=== PATIENT | female | born 1985 | race Caucasian/White ===

== ENCOUNTER → 2018-04-27 15:20 | Outpatient (CLI) | payer OTHER, SELFPAY ==
--- NOTE | 2018-04-27 15:24 | DI.RAD.S_ITS ---
PROCEDURE: XR KNEE RT 3V INDICATIONS: rt knee TECHNIQUE: 3 views of the knee were acquired. COMPARISON: None. FINDINGS: Bones: No fractures or dislocations. The mildly compartment joint space loss. No suspicious bony lesions. Soft tissues: No joint effusion. No suspicious soft tissue calcifications. IMPRESSION: Mild medial compartment joint space loss. Otherwise normal right knee. Dictated by: Emma Kam M.D. on 04/27/2018 at 17:13 Approved by: Emma Kam M.D. on 04/27/2018 at 17:14
== END ==
PROVIDERS: PCP Family Medicine; Visit Provider Family Medicine
DX: M25.561 Pain in right knee (principal)
CPT/HCPCS: 73562

== ENCOUNTER → 2018-05-06 12:27 | Outpatient (CLI) | payer OTHER, SELFPAY | PROVIDERS: PCP Family Medicine; Visit Provider Registered Nurse | DX: R50.9 Fever, unspecified (principal) | CPT/HCPCS: 87400 ==

== ENCOUNTER 2020-07-01 09:12 | Emergency (ER) | payer OTHER, SELFPAY ==
[2020-07-01 09:31] VITALS: BP 117/78; PULSE 74; RESP 18; TEMP 36.2; O2SAT 97; BMI 29.4
--- NOTE | 2020-07-01 09:36 | DI.RAD.S_ITS ---
PROCEDURE: XR ANKLE LT MIN 3V INDICATIONS: fall TECHNIQUE: 3 views of the ankle were acquired. COMPARISON: None. FINDINGS: Bones: No fractures or dislocations. Ankle mortise is normally aligned. No suspicious bony lesions. Soft tissues: No tibiotalar joint effusion. Achilles tendon appears normal. IMPRESSION: No acute ankle fracture or dislocation. Intact ankle mortise. Dictated by: Ezequiel Alvarez M.D. on 07/01/2020 at 10:16 Approved by: Ezequiel Alvarez M.D. on 07/01/2020 at 10:18
--- NOTE | 2020-07-01 09:36 | DI.RAD.S_ITS ---
PROCEDURE: XR TIBIA FIBULA LT 2V INDICATIONS: fall TECHNIQUE: 2 views of the tibia and fibula were acquired. COMPARISON: None. FINDINGS: Bones: No fractures or dislocations. No suspicious bony lesions. Soft tissues: No suspicious soft tissue calcifications or masses. IMPRESSION: No acute fracture or dislocation is seen in visualized portion of left lower leg. Dictated by: Ezequiel Alvarez M.D. on 07/01/2020 at 10:18 Approved by: Ezequiel Alvarez M.D. on 07/01/2020 at 10:36
--- NOTE | 2020-07-01 09:59 | ED_ITS ---
HPI - Extremity Injury (Lower) General Chief Complaint: Extremity Injury, Lower Stated Complaint: left lower leg pain, fell today Time Seen by Provider: 07/01/20 09:46 Source: patient Mode of arrival: Ambulatory Limitations: no limitations History of Present Illness HPI Narrative: Patient is a 34-year-old female here for evaluation of left leg pain. She states that earlier this morning she was caring some branches and tripped and landed with her left leg up underneath her. She has pain along the outside of the leg. No hip tenderness. No foot tenderness. Has not tried anything for the symptoms prior to arrival. She was ambulatory. Related Data Allergies Allergy/AdvReac Type Severity Reaction Status Date / Time atropine [From ] AdvReac Mild FACE Verified 07/01/20 09:36 FLUSHING hyoscyamine [From ] AdvReac Mild FACE Verified 07/01/20 09:36 FLUSHING phenobarbital [From ] AdvReac Mild FACE Verified 07/01/20 09:36 FLUSHING scopolamine [From ] AdvReac Mild FACE Verified 07/01/20 09:36 FLUSHING Review of Systems Constitutional Constitutional: Denies fever(s) ENT Ears, Nose, Mouth, and Throat: Denies vertigo and Denies dizziness Cardiovascular Cardiovascular: Denies chest pain and Denies dyspnea Respiratory Respiratory: Denies dyspnea Gastrointestinal Gastrointestinal: Denies abdominal pain, Denies nausea and Denies vomiting Musculoskeletal Comments: Left leg pain Integumentary/Breasts Skin/Breast: Denies lesions and Denies rash Neurologic Neurologic: Denies confusion, Denies vertigo and Denies dizziness Psychiatric Psychiatric: Denies confusion Hematologic/Lymphatic On Anticoagulants: No Allergic/Immunologic Allergic/Immunologic: Denies urticaria Patient History Medical History Anxiety Asthma Chronic headaches (1996) Family history of endometriosis Rheumatoid arthritis (1984) Surgical History Anesthesia History of umbilical hernia repair (~1988) Family History Grandfather Cancer Pancreatic cancer Brother No problems noted. Father No problems noted. Grandfather No problems noted. Grandmother No problems noted. Mother No problems noted. Grandmother No problems noted. Social History marital status: Smoking Status: Never smoker alcohol intake: current (ON OCCASION ) substance use type: does not use Smoking Status: Never smoker alcohol intake frequency: 0-2 drinks per day Substance Use Type: does not use Exam Initial Vital Signs Initial Vital Signs: Vital Signs Temperature 97.1 F L 07/01/20 09:31 Pulse Rate 74 07/01/20 09:31 Respiratory Rate 18 07/01/20 09:31 Blood Pressure 117/78 07/01/20 09:31 Pulse Oximetry 97 07/01/20 09:31 Const General: cooperative, comfortable and well developed Limitations: mental status not altered HENMT Head: normal to inspection and normocephalic Resp Effort & Inspection: normal respiratory effort Cardio Pulses: dorsalis pedis present on the left Skin Lesions: no lesions Rashes: no rashes Neuro General: patient alert, patient awake and patient oriented x3 Gait: normal gait Sensory Exam: no sensory deficits noted Extrem General: normal to inspection and capillary refill normal Other: Tenderness along the entire fibula. Also tenderness along the anterior aspect of the lateral malleolus. The medial malleolus and Achilles and foot are unremarkable. No calf tenderness. Psych Appearance: grossly normal and well kempt Course Orders Ordered: ED Orders 07/01/20 09:36 XR ankle LT min 3V Stat XR tibia fibula LT 2V Stat Vital Signs Vital signs: Vital Signs - 8 hr 07/01/20 09:31 07/01/20 10:17 Temperature 97.1 F L Pulse Rate 74 Pulse Rate [Left Dorsalis Pedis] 70 Respiratory Rate 18 Blood Pressure 117/78 Pulse Oximetry 97 MDM - Extremity Injury (Lower) Imaging Data Extremity x-ray #1: Radiologist's Impression: [address] [id number] ReportSigned Patient: Greta Mathis LMR#: [id number]: 1985Acct:[id number]/Sex: 34 / FDate of Service: 07/01/20Loc: EDAccession Number: [id number] Procedure: XR ankle LT min 3V Ordering Provider: Pj Medina D.O. PROCEDURE: XR ANKLE LT MIN 3V INDICATIONS: fall TECHNIQUE: 3 views of the ankle were acquired. COMPARISON: None. FINDINGS: Bones: No fractures or dislocations. Ankle mortise is normally aligned. No suspicious bony lesions. Soft tissues: No tibiotalar joint effusion. Achilles tendon appears normal. IMPRESSION: No acute ankle fracture or dislocation. Intact ankle mortise. Dictated by: Ezequiel Alvarez M.D. on 07/01/2020 at 10:16 Approved by: Ezequiel Alvarez M.D. on 07/01/2020 at 10:18 Extremity x-ray #2: Radiologist's Impression: [address] [id number] ReportSigned Patient: Greta Mathis LMR#: [id number]: 1985Acct:[id number]/Sex: 34 / FDate of Service: 07/01/20Loc: EDAccession Number: [id number] Procedure: XR tibia fibula LT 2V Ordering Provider: Pj Medina D.O. PROCEDURE: XR TIBIA FIBULA LT 2V INDICATIONS: fall TECHNIQUE: 2 views of the tibia and fibula were acquired. COMPARISON: None. FINDINGS: Bones: No fractures or dislocations. No suspicious bony lesions. Soft tissues: No suspicious soft tissue calcifications or masses. IMPRESSION: No acute fracture or dislocation is seen in visualized portion of left lower leg. Dictated by: Ezequiel Alvarez M.D. on 07/01/2020 at 10:18 Approved by: Ezequiel Alvarez M.D. on 07/01/2020 at 10:3 MDM Narrative Medical decision making narrative: Patient is neurovascularly intact. No fractures on the x-rays. I did discuss this with the patient. We did discuss keeping it elevated and iced. Discussed return precautions and follow-up instructions. She expressed understanding and agreement. Discharge Plan Departure Patient Disposition: Home Clinical Impression: Leg pain, left Instructions: DI for Leg Pain Activity Restrictions/Additional Instructions: Recommend that you keep your leg elevated and iced as much as possible. There were no fractures on the x-ray so you can walk as tolerated. Contact your primary provider for follow-up. Referrals: Aba Mendoza MD [Primary Care Provider] -
[2020-07-01 10:17] VITALS: PULSE 70
== END 2020-07-01 10:59 | disposition home or self-care (01) ==
PROVIDERS: Emergency Provider Emergency Medicine; PCP Family Medicine
DX: M79.605 Pain in left leg (principal)
CPT/HCPCS: 73590; 73610; 99283

== ENCOUNTER → 2021-08-13 14:47 | Outpatient (CLI) | payer OTHER, SELFPAY ==
[2021-08-13 16:34] LABS: Add Manual Diff / Slide Review NO; Basophils Absolute Auto 0 /uL (0-100); Basophils Percent Auto 0.3 % (0-2); Eosinophils Absolute Auto 300 /uL (0-450); Eosinophils Percent Auto 3.2 % (2-4); Hematocrit 36.2 % (36-46); Lymphocytes Absolute Auto 2100 /uL (1100-4500); Lymphocytes Percent Auto 24.6 % (25-40); Mean Corpuscular HGB Conc 33.2 % (30-36); Mean Corpuscular Hemoglobin 25.5 PG (26-34); Mean Corpuscular Volume 76.8 fL (80-100); Monocytes Absolute Auto 500 /uL (0-900); Monocytes Percent Auto 5.9 % (3-14); Neutrophils Absolute Auto 5600 /uL (1500-7000); Platelet Count 275 X10^3/uL (150-400); Red Blood Cell Count 4.71 X10^6/uL (4.0-5.2); Red Cell Distribution Width 16.3 % (11.6-14.8); White Blood Cell Count 8.6 X10^3/uL (4.5-11.0)
[2021-08-13 17:49] LABS: Alanine Aminotransferase 17 IU/L (<35); Albumin 4.3 g/dL (3.5-5.0); Albumin Globulin Ratio 1.4 (1.0-2.8); Alkaline Phosphatase 59 U/L (38-126); Aspartate Aminotransferase 24 IU/L (14-36); BUN Creatinine Ratio 16.9 (6-22); Bilirubin Total 0.3 mg/dL (0.2-1.3); Blood Urea Nitrogen 13 mg/dL (7-17); Calcium 8.6 mg/dL (8.4-10.2); Carbon Dioxide 26 mmol/L (22-32); Chloride 106 mmol/L (98-107); Estimated Glomerular Filt Rate > 60 mL/min (>60); Glucose 91 mg/dL (70-100); HEMOLYSIS < 15 (0-50); Potassium 3.5 mmol/L (3.4-5.1); Sodium 142 mmol/L (137-145); Total Protein 7.3 g/dL (6.3-8.2)
[2021-08-13 18:18] LABS: TSH w/ Reflex to FT4 1.49 uIU/mL (0.47-4.68)
== END ==
PROVIDERS: PCP Family Medicine; Referring Provider Physician Assistant; Visit Provider Physician Assistant
DX: M62.838 Other muscle spasm (principal); R00.0 Tachycardia, unspecified
CPT/HCPCS: 36415; 80053; 84443; 85025

== ENCOUNTER → 2021-11-27 15:08 | Outpatient (CLI) | payer OTHER, SELFPAY ==
--- NOTE | 2021-12-19 15:20 | PM.CARDMON.1 ---
Quality Control Lab Tech Report Referral & Results Date Patient Seen: 11/27/21 Requesting provider: Brisa Garcia Indication: Tachycardia Duration of monitoring (days): 14 Diary information: There were 14 patient triggered events all of which were associated with sinus rhythm only with heart rate ranging from 66-98 beats per minute Data: Minimum heart rate identified was 40 beats per minute at 07:01 on 12/08/2021 Maximum sinus heart rate was 150 beats per minute at 15:34 on 11/30/2021 Maximum overall heart rate was 160 beats per minute at 01:21 on 11/28/2021 during a run of SVT Less than 1% of identified beats were ventricular or supraventricular ectopic in origin, which would classify them as rare. There was 1 run of SVT that was 4 beats in duration at a rate of 160 beats per minute There were no pauses of 3 seconds or longer or episodes of atrial fibrillation identified on this study Impression: 14 day documentation engineer demonstrating single very brief run of SVT as above. Patient reported symptoms not associated with any significant or notable dysrhythmia Overall patient did not appear to be excessively tachycardic Clinical correlation suggested
== END ==
PROVIDERS: PCP Family Medicine; Referring Provider Physician Assistant; Visit Provider Physician Assistant
DX: R00.0 Tachycardia, unspecified (principal)
CPT/HCPCS: 93246; 93248

== ENCOUNTER → 2022-10-27 17:19 | Outpatient (CLI) | payer OTHER, SELFPAY ==
--- NOTE | 2022-10-27 17:20 | DI.RAD.S_ITS ---
PROCEDURE: XR CHEST 2V INDICATIONS: Cough, shortness of breath TECHNIQUE: 2 views of the chest were acquired. COMPARISON: None. FINDINGS: Surgical changes and devices: None. Lungs and pleura: Lungs are clear. No pleural effusions or pneumothorax. Mediastinum: Mediastinal contours are normal. Heart size is normal. Bones and chest wall: No suspicious bony abnormalities. Soft tissues appear unremarkable. IMPRESSION: No source for cough and shortness of breath identified radiographically. Dictated by: Nahun Bronson [facility] Interpreted: Zeyad Velázquez MD on 10/27/2022 at 20:26 Approved by: Zeyad Velázquez M.D. on 10/28/2022 at 10:29
== END ==
PROVIDERS: Family Provider Family Medicine; PCP Family Medicine; Referring Provider Physician Assistant; Visit Provider Physician Assistant
DX: R05.9 Cough, unspecified (principal)
CPT/HCPCS: 71046

== ENCOUNTER → 2023-08-31 13:19 | Outpatient (CLI) | payer OTHER, SELFPAY ==
--- NOTE | 2023-08-31 13:20 | DI.RAD.S_ITS ---
PROCEDURE: XR CHEST 2V INDICATIONS: Cough TECHNIQUE: 2 views of the chest were acquired. COMPARISON: [facility], CR, XR CHEST 2V, 10/27/2022, 17:22. FINDINGS: Surgical changes and devices: None. Lungs and pleura: No silhouetting. Mild fullness in the right hilar region. No pleural effusions or pneumothorax. Mediastinum: Mediastinal contours are otherwise unchanged. Heart size is normal. Bones and chest wall: No suspicious bony abnormalities. Soft tissues appear unremarkable. IMPRESSION: Mild fullness in the right hilar region. This could be due to adenopathy or overlying airspace opacity. Recommend follow-up chest x-ray. CT chest with contrast could be considered for further evaluation. Dictated by: Saud Rea M.D. on 08/31/2023 at 17:15 Approved by: Saud Rea M.D. on 08/31/2023 at 17:18
== END ==
PROVIDERS: Family Provider Family Medicine; PCP Family Medicine; Referring Provider Nurse Practitioner Family; Visit Provider Nurse Practitioner Family
DX: R05.9 Cough, unspecified (principal)
CPT/HCPCS: 71046

== ENCOUNTER 2023-09-04 06:17 | Emergency (ER) | payer OTHER, SELFPAY ==
[2023-09-04 06:25] VITALS: BP 144/81; PULSE 91; RESP 18; TEMP 37.6; O2SAT 92; BMI 32.1
--- NOTE | 2023-09-04 06:39 | PC.NURSE ---
Slight redness noted on forehead and left cheek. Pt has been out in the sun some but is unsure of why a few time she had some a warming feeling in her left cheek.
--- NOTE | 2023-09-04 07:18 | ED_ITS ---
HPI - Allergic Reaction General Chief complaint: Allergic Reaction Stated complaint: left side of face and shoulder feel warm Time Seen by Provider: 09/04/23 06:50 Source: patient Mode of arrival: Ambulatory Limitations: no limitations History of Present Illness HPI narrative: This is a 37-year-old female with history of asthma, anxiety who presents with complaint of redness of her face. She states it feels a little bit warm. It started yesterday had progressed into today. She does note she was in the sun some yesterday but did not think excessively. She also notes that she was started on prednisone on Wednesday for asthma exacerbation. Patient was seen in the walk-in clinic. Patient has not had any fevers. She states redness isn't anywhere else it does not seem to be spreading, there has been no swelling or blistering. She states it has not particularly painful. No hives or rash elsewhere. No chest pain, no new shortness of breath. She states she has had decreasing use of her albuterol only used it once overnight. She was using it every 6 hours. Patient denies any nausea or vomiting no diarrhea constipation or urinary symptoms. No swelling of extremities. She has felt very anxious, she has had insomnia been feeling very stressed since taking the prednisone she started at 40 mg, she has only been taking 20 mg but states still feeling very anxious. She did reach out to walk-in clinic who told her that she could not stop it. She was also prescribed albuterol inhaler and benzonatate. She has not currently on any oral antibiotics. She has not used any new topical lotions or creams or makeup to her face that might be causing irritation. Patient does have several allergies listed with the affect being face flushing. No tobacco, occasional alcohol, no recreational drugs. Related Data Previous Rx's Medication Instructions Recorded albuterol sulfate 90 mcg/actuation 2 inh inhalation Q4-6H PRN 10/27/22 breath activated powder shortness of breath #1 ea inhaler,sensor inhalational spacing device #1 ea 10/27/22 (Flexichamber spacer) albuterol sulfate 90 mcg/actuation 2 puff inhalation Q6H PRN 08/31/23 aerosol inhaler shortness of breath or wheezing #6.7 grams benzonatate 200 mg capsule 200 mg PO BID PRN cough #28 caps 08/31/23 prednisone 20 mg tablet 40 mg (2 x 20 mg) PO DAILY #6 tabs 08/31/23 Allergies Allergy/AdvReac Type Severity Reaction Status Date / Time atropine [From ] AdvReac Mild FACE Verified 08/31/23 12:59 FLUSHING hyoscyamine [From ] AdvReac Mild FACE Verified 08/31/23 12:59 FLUSHING phenobarbital [From ] AdvReac Mild FACE Verified 08/31/23 12:59 FLUSHING scopolamine [From ] AdvReac Mild FACE Verified 08/31/23 12:59 FLUSHING Review of Systems Review of Systems ROS Unobtainable: All systems reviewed & are unremarkable except as noted in HPI and below Patient History Medical History Family history of endometriosis Anxiety Asthma Chronic headaches (1996) Rheumatoid arthritis (1984) Surgical History Anesthesia History of umbilical hernia repair (~1988) Family History Grandfather Cancer Pancreatic cancer Brother No problems noted. Father No problems noted. Grandfather No problems noted. Grandmother No problems noted. Mother No problems noted. Grandmother No problems noted. Social History marital status: Smoking Status: Never smoker alcohol intake: current (ON OCCASION ) substance use type: does not use Smoking Status: Never smoker alcohol intake frequency: 0-2 drinks per day Substance Use Type: does not use Exam Narrative Exam Narrative: GEN: well nourished, well appearing female, alert and oriented x 3, patient appears to be in mild distress. HEENT: Atraumatic, pupils are equal round reactive to light, extraocular movements are intact, nares are clear, TMs are clear with no fluid, there is no conjunctival pallor. Throat is clear without any exudates, erythema, tonsillar enlargement or uvular deviation, patient has mild generalized erythema of the face particularly with the forehead cheeks and nose, does have some small telangiectasias of the cheeks. There is no swelling, some very mild warmth. No other skin changes noted. HEART: Regular rate and rhythm without murmur, clicks, rubs. LUNGS:Lungs clear to auscultation, no wheezes, rales, crackles, chest moves sy mmetrically, no tachypnea or accessory muscle use ABD:bowel sounds normal, soft, non-tender, no guarding, rebound, rigidity, no masses noted, no hepatosplenomegaly MSCL: Non-tender, no muscle atrophy, muscles strength 5/5 upper and lower extremities, full range of motion, normal gait NEURO:CN 2-12 intact, sensation normal SKIN: No other rash, erythema or skin changes appreciated than the face except for very mild erythema of the upper chest/neck in sun-exposed areas. Initial Vital Signs Initial Vital Signs: Vital Signs Temperature 99.6 F 09/04/23 06:25 Pulse Rate 91 H 09/04/23 06:25 Respiratory Rate 18 09/04/23 06:25 Blood Pressure 144/81 H 09/04/23 06:25 Pulse Oximetry 92 09/04/23 06:25 Oxygen Delivery Method Room Air 09/04/23 06:25 Course Vital Signs Vital signs: Vital Signs - 8 hr 09/04/23 06:25 Temperature 99.6 F Pulse Rate 91 H Respiratory Rate 18 Blood Pressure 144/81 H Pulse Oximetry 92 Oxygen Delivery Method Room Air MDM - Allergic Reaction MDM Narrative Medical decision making narrative: 37-year-old female with erythema face, might possibly be a side effect of prednisone she does not appear to be having any form of allergic reaction, maybe secondary to sun exposure although patient states she did not have any excessive exposure yesterday. She does note she has having a lot of anxiety insomnia and does appear to be having side effects from the prednisone in his forearm. Her breathing has significantly improved since she started it she has been taking 20 mg the last several days initially has been started on 40. States she only used her inhaler once overnight. She was using it every 6 hours before. Discussed with patient can continue to decrease her prednisone to 10 mg today and if feeling significantly improved can stop. Discussed possible causes her erythema and return precautions. We did review her chest x-ray from the walk-in clinic, there was some fullness in the hilar region and recommended to have repeat imaging such as chest x-ray or CT chest with contrast if necessary. I did not share this with the patient. Discharge Plan Departure Patient Disposition: Home Clinical Impression: Erythema of face Activity Restrictions/Additional Instructions: I hope you continue to feel improved. You can take 10 mg of prednisone today, if you are continuing to feel improved and not requiring your inhaler regularly you can stop taking any additional prednisone. If you feel like you are needing it occasionally you can continue with 10 mg daily for the next 2 days. The imaging from the 2nd showed some mild fullness in your right hilar region, this can sometimes be due to positioning but it is recommended you have a follow up chest x-ray or additional imaging. Talk with your primary care physician to your follow-up visit and they can order this. Please return if you are having fevers, increasing redness, swelling any blistering of the skin, any rash involvement of the mucous membranes such as the inside of your mouth, new chest pain or shortness of breath, persistent vomiting, new swelling of extremities or other new or concerning changes. Prescriptions: No Action albuterol sulfate 90 mcg/actuation aero powdr breath act w/sensor 2 inh inhalation Q4-6H PRN (Reason: shortness of breath) Qty: 1 0RF Rx Instructions: Using spacer inhale 2 puffs every 4-6 hours as needed (DME) Flexichamber Spacer See Rx Instructions .Route Qty: 1 0RF Rx Instructions: As directed prednisone 20 mg tablet 40 mg PO DAILY Qty: 6 0RF albuterol sulfate 90 mcg/actuation HFA aerosol inhaler 2 puff inhalation Q6H PRN (Reason: shortness of breath or wheezing) Qty: 6.7 0RF benzonatate 200 mg capsule 200 mg PO BID PRN (Reason: cough) Qty: 28 0RF Referrals: Aba Mendoza MD [Primary Care Provider] - Stand Alone Forms: Patient Portal/API
[2023-09-04 07:54] VITALS: BP 138/65; PULSE 81; RESP 16; O2SAT 95
== END 2023-09-04 07:54 | disposition home or self-care (01) ==
PROVIDERS: Emergency Provider Emergency Medicine; Family Provider Family Medicine; PCP Family Medicine
DX: L53.9 Erythematous condition, unspecified (principal)
CPT/HCPCS: 99281; 99282

== ENCOUNTER → 2023-09-17 08:53 | Outpatient (CLI) | payer OTHER, SELFPAY ==
--- NOTE | 2023-09-17 08:54 | DI.RAD.S_ITS ---
PROCEDURE: XR CHEST 2V INDICATIONS: cough TECHNIQUE: 2 views of the chest were acquired. COMPARISON: [facility], CR, XR CHEST 2V, 08/31/2023, 13:19. [facility], CR, XR CHEST 2V, 10/27/2022, 17:22. FINDINGS: Surgical changes and devices: None. Lungs and pleura: Lungs are clear. No pleural effusions or pneumothorax. Mediastinum: Mediastinal contours are normal. Heart size is normal. Bones and chest wall: No suspicious bony abnormalities. Soft tissues appear unremarkable. IMPRESSION: No acute cardiopulmonary abnormality is discernible. Dictated by: Henry Morrow M.D. on 09/17/2023 at 10:54 Approved by: Henry Morrow M.D. on 09/17/2023 at 10:58
== END ==
PROVIDERS: Family Provider Family Medicine; PCP Family Medicine; Referring Provider Family Medicine; Visit Provider Family Medicine
DX: R05.9 Cough, unspecified (principal)
CPT/HCPCS: 71046

== ENCOUNTER → 2023-11-04 18:30 | Outpatient (CLI) | payer OTHER, SELFPAY | PROVIDERS: Family Provider Family Medicine; PCP Family Medicine; Visit Provider Physician Assistant Medical | DX: R10.2 Pelvic and perineal pain (principal) | CPT/HCPCS: 87086 ==

== ENCOUNTER → 2023-12-10 16:02 | Outpatient (CLI) | payer OTHER, SELFPAY ==
--- NOTE | 2023-12-10 16:04 | DI.MG.S_ITS ---
BILATERAL DIGITAL SCREENING MAMMOGRAM 3D/2D WITH CAD: 12/10/2023 CLINICAL: Routine screening. Baseline exam. Comparison is made to exams dated: 11/22/2015 ultrasound, 10/25/2015 ultrasound, and 10/15/2015 ultrasound - [facility]. The breasts are heterogeneously dense, which may obscure small masses (category c / 51-75% glandular tissue). Current study was also evaluated with a Computer Aided Detection (CAD) system. No significant masses, calcifications, or other findings are seen in either breast. There has been no significant interval change. IMPRESSION: NEGATIVE There is no mammographic evidence of malignancy. A 1 year screening mammogram is recommended. Based on the Tyrer Cuzick model (a risk assessment model) the patient's lifetime risk is 10.0% and her 10 year risk is 1.2%. According to the ACR, ACS, and NCCN guidelines, an annual breast MRI exam along with mammogram is recommended if the patient's lifetime risk is 20% or greater. This exam was interpreted at Station ID: [id number]. NOTE: For mammograms, a report in lay terms will be sent to the patient. Approximately 15% of breast malignancies will not be visualized mammographically. In the management of a palpable breast mass, a negative mammogram must not discourage biopsy of a clinically suspicious lesion. Electronically Signed By: Girish castellanos/mary ellen:12/13/2023 07:39:45 letter sent: Normal Exam ACR BI-RADS Category 1: Negative
== END ==
PROVIDERS: Family Provider Family Medicine; PCP Family Medicine; Referring Provider Family Medicine; Visit Provider Family Medicine
DX: Z12.31 Encounter for screening mammogram for malignant neoplasm of breast (principal); R92.333 Mammographic heterogeneous density, bilateral breasts
CPT/HCPCS: 77063; 77067

== ENCOUNTER 2024-02-04 09:41 | Day surgery (SDC) | payer OTHER, SELFPAY ==
[2024-02-01 12:36] VITALS: BMI 38.0
[2024-02-04] VITALS (7 sets, daily range): BP systolic 107–141; BP diastolic 64–87; PULSE 53–90; RESP 10–16; TEMP 36.4–37.3; O2SAT 99–100; BMI 38.0
--- NOTE | 2024-02-04 | PATH_ITS ---
[facility] Accession Number: [id number] No. of containers..01 Tissue . 01 Material submitted: . endometrium - ENDOMETRIAL CURETTINGS . 01 Diagnosis: ENDOMETRIAL CURETTINGS: Portions of interval phase endometrium with patchy regions of stromal breakdown and shedding; negative for endometrioid intraepithelial neoplasia or malignancy. Some endometrial fragments demonstrate prominent vessels, suggestive of polyp, if clinical and imaging studies are concordant. MRV 02/11/2024 0912 Local . 01 Electronically signed: . Yazmin Tony MD, Pathologist NPI- [id number] . 01 Gross description: . Received in formalin with two patient identifiers and endometrial curettings, are multiple maya and dark brown soft tissue fragments admixed with mucohemorrhagic material received on Telfa paper, aggregating to 2.6 x 1.9 x 0.6 cm. Filtered and submitted in A1. ([id number]) /MRV 02/08/2024 1340 Local . 01 Pathologist provided ICD-10: R10.32 . 01 CPT . 018026 Specimen Comment: A courtesy copy of this report has been sent to [phone] Performed at: [address] [address], [place], [place] [id number] MD Zain Hatch MD Phone: [phone]
[2024-02-04] MEDS: LACTATED RINGERS 1,000 ML 21 ML IV (10:10)
[2024-02-04] MEDS: ACETAMINOPHEN IV 1,000 MG/100 ML VIAL 400 MG IV (10:29)
--- NOTE | 2024-02-04 10:46 | PM.GYNHP.1 ---
History of Present Illness History of Present Illness Reason for admission: vaginal bleeding and pelvic pain (left) Narrative: Greta Mathis is a 38 year old female with menorrhagia, endometrial hyperplasia and persistent left lower quadrant pain. [facility] Medical History (Updated 01/11/24 @ 10:16 by Brisa Garcia PA-C) Family history of endometriosis Anxiety Asthma Chronic headaches (1996) Rheumatoid arthritis (1984) Surgical History Anesthesia History of umbilical hernia repair (~1988) Family History Grandfather Cancer Pancreatic cancer Brother No problems noted. Father No problems noted. Grandfather No problems noted. Grandmother No problems noted. Mother No problems noted. Grandmother No problems noted. Social History marital status: household members: spouse Smoking Status: Never smoker alcohol intake: never substance use type: does not use Meds Home Medications and Allergies Home Medications Medication Instructions Recorded Confirmed Type inhalational spacing device #1 ea 09/07/23 01/11/24 Rx (Flexichamber spacer) albuterol sulfate 90 mcg/actuation 2 puff inhalation Q6H PRN 10/18/23 01/11/24 Rx aerosol inhaler shortness of breath or wheezing #6.7 grams cetirizine 10 mg tablet 10 mg PO DAILY PRN 12/01/23 01/11/24 History amoxicillin 875 mg-potassium 1 tab PO BID #14 tabs 01/11/24 01/11/24 Rx clavulanate 125 mg tablet Allergies Allergy/AdvReac Type Severity Reaction Status Date / Time prednisone AdvReac Intermediate facial Verified 02/01/24 12:42 redness. atropine [From ] AdvReac Mild FACE Verified 01/11/24 09:41 FLUSHING ciclesonide [From [place]] AdvReac Mild Hives Verified 02/01/24 12:42 hyoscyamine [From ] AdvReac Mild FACE Verified 01/11/24 09:41 FLUSHING phenobarbital [From ] AdvReac Mild FACE Verified 01/11/24 09:41 FLUSHING scopolamine [From ] AdvReac Mild FACE Verified 01/11/24 09:41 FLUSHING Exam Vital Signs (past 8 hours): - 02/04/24 10:33 Temperature 99.1 F Pulse Rate 90 Respiratory Rate 16 Blood Pressure 141/87 H Pulse Oximetry 100 Oxygen Delivery Method Room Air Oxygen Delivery Method Room Air Narrative Exam Narrative: HEENT: No thyromegaly, no anterior cervical or supraclavicular lymphadenopathy. Lungs:Clear to auscultation bilaterally, no wheezes. Cardiovascular: Regular rate and rhythm, no murmurs, rubs, or gallops. Abdomen: Well-healed scars. No hepatosplenomegaly. No masses palpable. External genitalia: Normal Vagina: Normal Cervix: Normal Bimanual exam: 7 Week size uterus. Mobile. Extremities: No edema Assessment & Plan Assessment & Plan narrative: Assessment: 38 year old with menorrhagia, endometrial hyperplasia come and persistent left lower quadrant pain Plan: Diagnostic laparoscopy, D&C hysteroscopy with NovaSure endometrial ablation The risks, benefits, and alternatives to the procedure were explained to the patient. The risks including bleeding, infection, injury to the bowel, bladder, or ureters, also uterine perforation. She understands these risks and agrees to proceed. A full par Q was held and consent form was signed. Time-Based Coding :: [TOTAL MINUTES] spent with patient and on the chart (including review of chart, obtaining history, exam, reviewing outside data, placing orders, documenting exam and treatment plan, and counseling patient) on [DATE].
--- NOTE | 2024-02-04 10:51 | PM.PREOP ---
Pre-operative Note Interval Note History & Physical reviewed/Exam performed by Physician: Yes Changes to H&P: No H&P completed within 30 days and has changed as indicated here:: 02/04/24
[2024-02-04] MEDS: CEFAZOLIN 2 GM/100 ML PREMIX 100 ML IV (11:00)
--- NOTE | 2024-02-04 11:21 | SUR.OPER ---
Lithotomy on padded OR bed, head on pillow, arms secured on padded arm boards at <90 degrees abduction. Legs secured in padded yellow fins stirrups.
[2024-02-04] MEDS: BUPIVACAINE 0.5% W/ EPI (PF) 30 ML VIAL INJ (11:28)
--- NOTE | 2024-02-04 11:53 | P.OP_ITS ---
Operative Date/Time/Diagnoses Date of procedure: 02/04/24 Time of procedure: 11:53 Procedure & Clinicians Procedure: Procedures Operation Date: 02/04/24 11:00 Actual Procedure Side Surgeon p Laparoscopy, Diagnostic, GLASS CALIBRATOR Rafaela Campbell MD s D&C Hysteroscopy w/ Novasure Ablation Rafaela Campbell MD Indications: 38-year-old with persistent left lower quadrant pain, menorrhagia, and endometrial hyperplasia Surgeon: Rafaela Campbell Anesthesia Type: General (General endotracheal) and Local Operative Notes Findings: 8 wk anteverted uterus Normal liver and gallbladder Normal appendix Normal ovaries and tubes Thickened endometrial lining Closure Type: not applicable Specimen(s): endometrial curettings Estimated blood loss (mL): 5 Blood products transfused: none Procedure in detail: After informed consent was obtained, the patient was taken to the operating room where she was placed in the dorsal supine position. After adequate general endotracheal anesthesia was achieved, she was placed in the dorsal lithotomy position, and prepped and draped in the usual sterile fashion. A time-out was performed. A bivalve speculum was placed into the vagina and the anterior lip of the cervix was grasped with a single-tooth tenaculum. The cervical os sequentially dilated until the Zumi uterine manipulator could pass easily into the endometrial cavity. The single-tooth tenaculum was removed from the anterior lip of the cervix. The bivalve speculum was removed from the vagina. Attention was then turned to the abdomen where 6 cc of 0.5% Marcaine with epinephrine were injected in the umbilical fold. A 5 mm incision was made. The Veress needle was placed in peritoneal cavity, and its placement confirmed by aspiration and drop test. The abdominal cavity was insufflated with 3.2 L of CO2. The Veress needle was removed, and a 5 mm trocar was placed without difficulty. The balloon was inflated. A second incision was made 4 cm left lateral to the umbilicus after 6 cc of 0.5% Marcaine with epinephrine were injected and a 5 mm trocar was placed under direct visualization. A probe was used to identify both tubes and ovaries which were normal. Uterus was normal. No evidence of endometriosis. No fibroids. The liver, gallbladder, and appendix were normal. The instruments were removed from the abdomen. The CO2 was allowed to escape. The incisions were repaired with 4-0 Monocryl in a subcuticular fashion. Steri-Strips and Allevyn dressings were placed. At tention was then turned to the vagina where the Zumi uterine manipulator was removed from the uterus. The cervix was dilated to the #8 Hegar dilator. The MyoSure hysteroscope passed easily into the endometrial cavity. There were no polyps visualized but there was thickened endometrium. Endometrial curettings were obtained. The MyoSure scope was removed from the uterus. The cervix was measured from the internal os of the fundus of the uterus and measured 4.5 cm. This was set on the generator and then the NovaSure catheter. The NovaSure catheter passed easily into the endometrial cavity and was opened. The width of the uterus was 3.4 cm. This was set on the generator. The cervix was capped. The cavity assessment was performed and passed. The cycle was initiated and lasted 1 minute and 3 seconds. The NovaSure catheter was closed. The cervix was uncapped. The catheter was removed from the uterus. The single-tooth tenaculum was removed from the anterior lip of the cervix. The bivalve speculum was removed from the vagina. Sponge, lap, and instrument counts were correct x2. The patient tolerated the procedure well, and was taken to PACU in stable condition. Complications: none Post-operative Condition: stable Disposition: PACU Plan for aftercare: Home after recovery
--- NOTE | 2024-02-04 12:53 | SUR.PHASEII ---
All discharge instructions reviewed with patient and at bedside. V/U. Written discharge instructions given. . All belongings returned to patient.
== END 2024-02-04 13:15 | disposition home or self-care (01) ==
PROVIDERS: Family Provider Family Medicine; PCP Family Medicine; Referring Provider Obstetrics & Gynecology; Visit Provider Obstetrics & Gynecology
PROC: (CPT 49320; principal; 2024-02-04 11:00)
PROC: 0U5B8ZZ Destruction of Endometrium, Via Natural or Artificial Opening Endoscopic (ICD-10-PCS; CPT 58563; 2024-02-04 11:00)
DX: R10.32 Left lower quadrant pain (principal); N92.0 Excessive and frequent menstruation with regular cycle; N85.00 Endometrial hyperplasia, unspecified
CPT/HCPCS: 49320; 58563; J0134; J0690; J1100; J1885; J2250; J2405; J2704; J3010

== ENCOUNTER → 2024-03-13 12:49 | Outpatient (CLI) | payer OTHER, SELFPAY ==
[2024-03-13 13:52] LABS: Appearance Urine UA CLEAR; Bilirubin Urine UA NEGATIVE (NEGATIVE); Color Urine UA YELLOW; Glucose Urine UA NEGATIVE (Negative); Ketones Urine UA NEGATIVE (NEGATIVE); Leukocyte Esterase Urine UA NEGATIVE (NEGATIVE); Nitrite Urine UA NEGATIVE (Negative); Occult Blood Urine UA NEGATIVE (Negative); Protein Urine UA NEGATIVE (Negative); Specific Gravity Urine UA 1.015 (1.000-1.035); Urobilinogen Urine UA 0.2 E.U./dL (0.2)
[2024-03-13 13:53] LABS: pH Urine UA 5.5 (4.5-8.0)
[2024-03-13 13:57] LABS: Bacteria Urine None Seen; Culture Indicated Urine Cult Not Indicated; RBC Urine None Seen (0-5/HPF); Squamous Epithelial Cell Urine None Seen (0-5/HPF); Urine Volume 10mL (spun); WBC Urine None Seen (0-5/HPF)
== END ==
PROVIDERS: Family Provider Family Medicine; PCP Family Medicine; Referring Provider Physician Assistant; Visit Provider Physician Assistant
DX: R10.2 Pelvic and perineal pain (principal); R35.0 Frequency of micturition
CPT/HCPCS: 81001

== ENCOUNTER → 2024-05-03 08:32 | Outpatient (CLI) | payer OTHER, SELFPAY ==
--- NOTE | 2024-05-03 08:34 | DI.US.S_ITS ---
PROCEDURE: US RENAL COMPLETE INDICATIONS: LEFT FLANK PAIN TECHNIQUE: Real-time scanning was performed of the kidneys and bladder, with image documentation. COMPARISON: None. FINDINGS: Kidneys: Kidneys are normal in size. Right kidney measures 11.8 cm long; left kidney measures 11.6 cm long. Right renal cortical thickness is 1.6 cm; left renal cortical thickness is 1.4 cm. Renal cortical echotexture is normal. No hydronephrosis or nephrolithiasis. No suspicious solid mass lesions. Bladder: Bladder not distended at the time of image acquisition. Miscellaneous: No free pelvic fluid. IMPRESSION: No renal stone or hydronephrosis. Dictated by: Argelia Camara MD, PhD on 05/03/2024 at 10:43 Approved by: Argelia Camara MD, PhD on 05/03/2024 at 10:44
== END ==
PROVIDERS: Family Provider Family Medicine; PCP Family Medicine; Referring Provider Physician Assistant; Visit Provider Physician Assistant
DX: R10.12 Left upper quadrant pain (principal); M54.9 Dorsalgia, unspecified
CPT/HCPCS: 76770

== ENCOUNTER → 2024-05-03 08:34 | Outpatient (CLI) | payer OTHER, SELFPAY ==
--- NOTE | 2024-05-03 08:35 | DI.US.S_ITS ---
PROCEDURE: US PELVIC COMPLETE INDICATIONS: PAIN POST ABLATION TECHNIQUE: Real-time scanning was performed of the pelvic organs, with image documentation. Additional endovaginal scanning was necessary due to incomplete visualization of the adnexal and endometrial structures by transabdominal scanning. COMPARISON: None. FINDINGS: Uterus: Uterus is anteverted and normal in size at 9.2 x 4.9 x 6.4 cm. The myometrium is homogeneous. The endometrium measures 13.8 mm combined thickness. Ovaries: The right ovary is not visualized due to bowel gas and cannot be evaluated. The left ovary measures 2.7 x 2.3 x 1.4 cm, with a calculated ovarian volume of 4.7 cc. The left ovary has normal sonographic appearance. Less than 12 follicles can be seen in the left ovary. No adnexal masses are seen. Other: No pathologic free abdominal or pelvic fluid. IMPRESSION: Uterus and left ovary are sonographically normal. Right ovary not visualized due to bowel gas and cannot be evaluated. Dictated by: Argelia Camara MD, PhD on 05/03/2024 at 10:45 Approved by: Argelia Camara MD, PhD on 05/03/2024 at 10:47
== END ==
PROVIDERS: Family Provider Family Medicine; PCP Family Medicine; Referring Provider Obstetrics & Gynecology; Visit Provider Obstetrics & Gynecology
DX: N99.85 Post endometrial ablation syndrome (principal); R10.12 Left upper quadrant pain; M54.9 Dorsalgia, unspecified
CPT/HCPCS: 76770; 76830; 76856; 93976

== ENCOUNTER → 2024-10-10 08:29 | Outpatient (CLI) | payer OTHER, SELFPAY ==
[2024-10-10 09:20] LABS: Add Manual Diff / Slide Review NO; Hematocrit 36.9 % (36-46); Hemoglobin 12.2 g/dL (12.0-16.0); Lymphocytes Absolute Auto 1900 /uL (1100-4500); Mean Corpuscular HGB Conc 33.0 % (30-36); Mean Corpuscular Hemoglobin 25.9 PG (26-34); Mean Corpuscular Volume 78.5 fL (80-100); Platelet Count 264 X10^3/uL (150-400)
[2024-10-10 09:38] LABS: Alanine Aminotransferase 26 IU/L (<35); Albumin 4.1 g/dL (3.5-5.0); Albumin Globulin Ratio 1.5 (1.0-2.8); Alkaline Phosphatase 60 U/L (38-126); Blood Urea Nitrogen 14 mg/dL (7-17); Calcium 9.1 mg/dL (8.4-10.2); Carbon Dioxide 27 mmol/L (22-32); Chloride 105 mmol/L (98-107); Cholesterol 107 mg/dL (140-199); Estimated Glomerular Filt Rate > 60 mL/min (>60); Globulin 2.7 g/dL (1.7-4.1); Glucose 102 mg/dL (70-99); HDL Cholesterol 47 mg/dL (40-60); HEMOLYSIS < 15 (0-50); Potassium 4.0 mmol/L (3.4-5.1); Sodium 138 mmol/L (137-145); Total Protein 6.8 g/dL (6.3-8.2); Triglycerides 103 mg/dL (35-150)
[2024-10-10 12:00] LABS: TSH w/ Reflex to FT4 1.60 uIU/mL (0.47-4.68)
[2024-10-10 20:44] LABS: Hemoglobin A1C% w Est Avg Glu 5.5 % (4.0-6.0)
== END ==
PROVIDERS: PCP Family Medicine; Referring Provider Family Medicine; Visit Provider Family Medicine
DX: Z13.220 Encounter for screening for lipoid disorders (principal)
CPT/HCPCS: 36415; 80053; 80061; 83036; 84443; 85025

== ENCOUNTER → 2024-11-24 15:49 | Outpatient (CLI) | payer OTHER, SELFPAY ==
[2024-11-24 18:03] LABS: Add Manual Diff / Slide Review NO; Hematocrit 37.3 % (36-46); Hemoglobin 12.3 g/dL (12.0-16.0); Lymphocytes Absolute Auto 2500 /uL (1100-4500); Mean Corpuscular HGB Conc 32.8 % (30-36); Mean Corpuscular Hemoglobin 25.7 PG (26-34); Mean Corpuscular Volume 78.2 fL (80-100); Platelet Count 306 X10^3/uL (150-400)
== END ==
PROVIDERS: PCP Family Medicine; Referring Provider Physician Assistant; Visit Provider Physician Assistant
DX: R79.89 Other specified abnormal findings of blood chemistry (principal)
CPT/HCPCS: 36415; 85025